=== PATIENT | female | born 1935 | race Caucasian/White ===

== ENCOUNTER 2016-08-17 05:28 | Emergency (ER) | payer OTHER, MEDICARE ==
[~2016-08-17] VITALS: Ht 152.4 cm; Wt 59.9 kg
[~2016-08-17 05:28] MED LIST: AMLODIPINE BESYL5 M1 PO; ASPIR LOW81 MG PO; CLOPIDOGREL75 MG PO; COQ10 IN OIL 101 SGL PO; D3-5000 90 MG-51 TAB PO; FISH OIL500 MG PO; FUROSEMIDE20 MG PO; LEVOTHYROXINE0.05 M1 PO; LOPRESSOR 25MG25 MG PO; LOSARTAN POTAS100 MG PO; MELATONIN 3 MG-1 TAB PO; MELATONIN3 MG PO; METOPROLOL TART25 M1 PO; METOPROLOL TART50 M1 PO; NIFEDICAL XL60 MG PO; NIFEDIPINE30 MG PO; PANTOPRAZOLE SO40 MG PO; PRAVASTATIN20 MG PO; SERTRALINE HYDR50 MG PO; VITAMIN D1000 IU PO; WELCHOL 625 MG625 MG PO
--- NOTE | 2016-08-17 05:39 | ED GENERAL ADULT ---
History of Present Illness General Chief Complaint: General Adult Stated Complaint: " I THINK IM HAVING A HEART ATTACK" Source: patient, family, old records Exam Limitations: no limitations Vital Signs & Intake/Output Vital Signs & Intake/Output Vital Signs Date Time Temp Pulse Resp B/P B/P Pulse O2 O2 Flow FiO2 Mean Ox Delivery Rate 08/17 0932 98.2 65 15 119/58 95 Room Air Room Air 08/17 0719 96.7 56 20 132/63 95 Room Air 08/17 0547 Room Air 08/17 0541 96.2 67 16 155/71 98 Room Air Room Air Allergies Coded Allergies: STATINS (Intermediate, BONE PAIN 08/17/16) codeine (UNKNOWN 08/17/16) Reconcile Medications Amlodipine Besylate 5 MG TABLET 5 MG PO DAILY HTN (Reported) Aspirin (Aspirin EC) 81 MG TABLET.DR 1 TAB PO DAILY HEART HEALTH (Reported) Cholecalciferol (Vitamin D3) 1,000 UNIT TABLET 1 TAB PO DAILY VITAMIN SUPPORT (Reported) CLOPIDOGREL BISULFATE (Clopidogrel) 75 MG TABLET 1 TAB PO DAILY heart health (Reported) Coenzyme Q10/Vitamin E (Coq10 in Oil 100 MG-30 Iu) 1 SGL SGL 1 TAB PO DAILY SUPPLEMENT (Reported) Levothyroxine Sodium 50 MCG TABLET 1 TAB PO DAILY HYPOTHYROIDISM (Reported) Losartan Potassium 100 MG TABLET 1 TAB PO DAILY HTN (Reported) Melatonin 3 MG TABLET 0.5 TAB PO AT BEDTIME SLEEP HELP (Reported) Metoprolol Tartrate 25 MG TABLET 25 MG PO QAM HTN (Reported) Metoprolol Tartrate 50 MG TABLET 50 MG PO QHS HTN (Reported) Nifedipine (Nifedipine ER) 60 MG TAB.ER.24 1 TAB PO DAILY HIGH BLOOD PRESSURE Pantoprazole Sodium 40 MG TABLET.DR 1 TAB PO DAILY GASTRITIS (Reported) Pravastatin Sodium (Pravastatin) 20 MG TAB 1 TAB PO DAILY HIGH CHOLESTROL ( Reported) SALMON OIL/OMEGA-3 FATTY ACIDS (Fish Oil 500 MG Softgel) 500 MG-100 MG CAPSULE 1 TAB PO DAILY SUPPLEMENT (Reported) SERTRALINE HCL (Sertraline Hydrochloride) 50 MG TABLET 1 TAB PO DAILY DEPRESSION (Reported) Triage Nurses Notes Reviewed? yes HPI: Past few days the patient hasn't been feeling well. Patient cannot describe what she means by that other than to state that she is not feeling well and that she has been feeling tired and burping a lot. Patient was asleep when she woke up this morning with a burning sensation in her chest and abdomen. The burning sensation woke her up. There is no radiation. The burning sensation lasted approximately 45 minutes and then went away on its own. Patient is currently feeling slightly nauseous. Patient is very nervous because she had a heart attack in the past and her only symptom was sweating. Patient denies any difficulty breathing. There is often. There are no fevers or chills. Patient took an aspirin prior to coming in. (SABINE ZAYAS MD) Past History Travel History Traveled to [place] past 21 day No Medical History Any Pertinent Medical History? 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 fib, skin cancer Surgical History Surgical History: CABG, RODRIGO with unilateral oophorectomy Psychosocial History Who do you live with Daughter Services at Home None What is your primary language Par[place] Tobacco Use: Quit >30 days ago ETOH Use: denies use Illicit Drug Use: denies illicit drug use Family History Family History, If Any: MOTHER BROTHER FATHER Relation not specified for: FH: breast cancer FH: CAD (coronary artery disease) Pancreatic cancer Hx Contributory? No (SABINE ZAYAS MD) Review of Systems Review of Systems Constitutional: Reports: see HPI. EENTM: Reports: no symptoms. Respiratory: Reports: no symptoms. Cardiovascular: Reports: see HPI, chest pain. GI: Reports: see HPI. Genitourinary: Reports: no symptoms. Musculoskeletal: Reports: no symptoms. Skin: Reports: no symptoms. Neurological/Psychological: Reports: no symptoms. Hematologic/Endocrine: Reports: no symptoms. Immunologic/Allergic: Reports: no symptoms. All Other Systems: Reviewed and Negative (SABINE ZAYAS MD) Physical Exam Physical Exam General Appearance: well developed/nourished, alert, awake, anxious, moderate distress Head: atraumatic, normal appearance Eyes: Bilateral: PERRL, EOMI. Ears, Nose, Throat: normal pharynx, normal ENT inspection, hearing grossly normal Neck: normal inspection, supple, full range of motion Respiratory: normal breath sounds, chest non-tender, no respiratory distress, lungs clear Cardiovascular: regular rate/rhythm, normal peripheral pulses Gastrointestinal: normal bowel sounds, soft, non-tender, no organomegaly Back: normal inspection, normal range of motion Extremities: normal inspection, normal capillary refill, normal range of motion, pedal edema Neurologic/Psych: no motor/sensory deficits, awake, alert, oriented x 3, normal mood/affect Skin: intact, normal color, warm/dry Lymphatic: no anterior cervical felicia Core Measures ACS in differential dx? 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 CVA/TIA Diagnosis: No Severe Sepsis Present: No Septic Shock Present: No (MARQUEZ THOMAS,SABINE Wu) Progress Differential Diagnoses I considered the following diagnoses in my evaluation of the patient: [AMI, ELECTROLYTE ABNORMALITY, PANCREATITIS, CHOLECYSTITIS, PNEUMONIA] Plan of Care: Orders Procedure Date/time Status Heart Healthy Diet 08/17 B Active TROPONIN LEVEL 08/17 0930 Complete EKG 08/17 0930 Active Telemetry/Paid Internship 08/17 0539 Active URINALYSIS 08/17 0539 Active THYROID STIMULATING HORMONE 08/17 0539 Complete TROPONIN LEVEL 08/17 0539 Complete LIPASE 08/17 0539 Complete COMPREHENSIVE METABOLIC PANEL 08/17 0539 Complete CBC WITHOUT DIFFERENTIAL 08/17 0539 Complete AMYLASE 08/17 0539 Complete EKG 08/17 0532 Active Laboratory Tests 08/17/16 0930: Troponin I < 0.01 08/17/16 0544: Anion Gap 12, Estimated GFR 43 L, BUN/Creatinine Ratio 24.2, Glucose 90, Calcium 9.4, Total Bilirubin 0.4, AST 28, ALT 32, Alkaline Phosphatase 102, Troponin I < 0.01, Total Protein 7.0, Albumin 4.0, Globulin 3.0, Albumin/ Globulin Ratio 1.3, Amylase 61, Lipase 198, TSH 6.810 H, CBC w Diff NO MAN DIFF REQ, RBC 3.71 L, MCV 85.6, MCH 28.6, RDW 13.9, MPV 8.3, Gran % 53.2, Lymphocytes % 29.7, Monocytes % 14.6 H, Eosinophils % 1.9, Basophils % 0.6, Absolute Granulocytes 5.5, Absolute Lymphocytes 3.1, Absolute Monocytes 1.5 H, Absolute Eosinophils 0.2, Absolute Basophils 0.1, PUBS MCHC 33.4 Diagnostic Imaging: Viewed by Me: Radiology Read. Discussed w/RAD: Radiology Read. CXR Impression: PATIENT: INNA JAVED PRESENT AGE: 80 PATIENT ACCOUNT NO: [id number] : 34 LOCATION: [facility] ORDERING PHYSICIAN: SABINE ZAYAS MD SERVICE DATE: 08/17/16 EXAM TYPE: RAD - XRY- PORTABLE CHEST XRAY EXAMINATION: XR PORTABLE CHEST CLINICAL INFORMATION: Chest pain COMPARISON: 09/30/2015 TECHNIQUE: Portable frontal view of the chest was obtained. FINDINGS: The lungs are clear with no focal consolidation. No evidence of pneumothorax, pulmonary edema, or pleural effusions. Cardiac size is at the upper limits of normal. Calcification is present at the aortic arch. Sternal wires are present. No acute osseous findings are seen. IMPRESSION: No acute cardiopulmonary findings. DICTATED BY: ELOY PALACIO MD DATE/TIME DICTATED:555 MARKETING CONSULTANT:MARIO DATE/TIME TRANSCRIBED:08/17/16555 CONFIDENTIAL, DO NOT COPY WITHOUT APPROPRIATE AUTHORIZATION. <Electronically signed in Other Vendor System> SIGNED BY: ELOY PALACIO MD 08/17/16 0600 Initial ED EKG: SR WITH RBBB AND Q WAVES INFERIOR Rhythm Strip: normal sinus rhythm Hand-Off Endorsed To: PATRICIO CARLOS MD Endorsed Time: 0700 Pending: labs (SABINE ZAYAS MD) Repeat EKG: unchanged (PATRICIO CARLOS MD) Departure Departure Condition: Stable Clinical Impression Primary Impression: Chest pain, unspecified Qualifiers: Chest pain type: other chest pain Qualified Code: R07.89 - Other chest pain Departure Forms: Customer Survey General Discharge Information (SABINE ZAYAS MD) Departure Time of Disposition: 1053 Disposition: HOME OR SELF CARE Referrals: BINH THOMAS,GIULIANO HUNTER MD,LUCIAN (PCP/Family) (PATRICIO CARLOS MD) Critical Care Note Critical Care Note Critical Care Time: non-applicable (SABINE ZAYAS MD)
[2016-08-17 05:54] LABS: ABSOLUTE BASOPHIL COUNT 0.1 /CUMM (0.0-0.2); ABSOLUTE EOSINOPHIL COUNT 0.2 /CUMM (0.0-0.7); ABSOLUTE GRANULOCYTE CT 5.5 /CUMM (1.4-6.5); ABSOLUTE LYMPH COUNT 3.1 /CUMM (1.2-3.4); ABSOLUTE MONOCYTE COUNT 1.5 /CUMM (0.10-0.60); BASOPHIL % 0.6 % (0.0-2.0); EOSINOPHIL % 1.9 % (0-5); GRANULOCYTE % 53.2 % (42.2-75.2); HEMATOCRIT 31.8 % (37-47); MEAN CORPUSCULAR HGB 28.6 PG (27.0-31.0); MEAN CORPUSCULAR HGB CONC 33.4 G/DL (33.0-37.0); MEAN CORPUSCULAR VOLUME 85.6 FL (81.0-99.0); MEAN PLATELET VOLUME 8.3 FL (7.4-10.4); PLATELET COUNT 350 /CUMM (130-400); RBC DISTRIBUTION WIDTH 13.9 % (11.5-14.5); RED BLOOD CELL CT 3.71 /CUMM (4.20-5.40); WHITE BLOOD CELL COUNT 10.3 /CUMM (4.8-10.8)
--- NOTE | 2016-08-17 06:00 | RADIOLOGY REPORT ---
EXAMINATION: XR PORTABLE CHEST CLINICAL INFORMATION: Chest pain COMPARISON: 09/30/2015 TECHNIQUE: Portable frontal view of the chest was obtained. FINDINGS: The lungs are clear with no focal consolidation. No evidence of pneumothorax, pulmonary edema, or pleural effusions. Cardiac size is at the upper limits of normal. Calcification is present at the aortic arch. Sternal wires are present. No acute osseous findings are seen. IMPRESSION: No acute cardiopulmonary findings.
[2016-08-17 11:03] VITALS: BP 118/56
== END 2016-08-17 11:06 ==
LOC: ERH 05:28
PROVIDERS: Emergency Medicine
DX: R07.9 Chest pain, unspecified (principal); R10.9 Unspecified abdominal pain; E78.5 Hyperlipidemia, unspecified; I10 Essential (primary) hypertension
CPT/HCPCS: 93005; 93010; 96374; J2405